=== PATIENT | male | born 1980 | race African-American/Black ===

== ENCOUNTER 2017-04-01 12:58 | Emergency (ER) | payer OTHER ==
[~2017-04-01] VITALS: Ht 182.9 cm; Wt 96.6 kg
[~2017-04-01 12:58] MED LIST: HYDR12.56 PO; LABE200T18 PO; LISI40TA
[2017-04-01] MEDS ORDERED: MINOXIDIL 2.5 MG TAB PO ONE (13:45)
[2017-04-01 14:14] LABS: Basophils # (auto) 0.2 uL; Basophils % (auto) 1.6 % (0.0-2.0); Eosinophils # (auto) 0.3 uL; Eosinophils % (auto) 2.4 % (0.0-7.0); Hematocrit 44.7 % (41.0-53.0); Lymphocytes # (auto) 1.3 uL; Lymphocytes % (auto) 11.9 % (10.0-50.0); Mean Corpuscular Hemoglobin 27.3 pg (28.0-32.0); Mean Corpuscular Hgb Conc. 33.6 g/dL (32.0-36.0); Mean Corpuscular Volume 81.4 fL (80.0-100.0); Mean Platelet Volume 8.4 fL (6.9-10.8); Monocytes # (auto) 0.7 uL; Monocytes % (auto) 6.8 % (0.0-12.0); Neutrophils # (auto) 8.1 uL; Neutrophils % (auto) 77.3 % (37.0-80.0); Nucleated Red Blood Cells % 0.1 %; Platelet Count (auto) 438 10^3/uL (140-450); Red Cell Distribution Width 14.8 % (11.8-14.3); White Blood Cell 10.5 10^3/uL (4.4-10.8)
[2017-04-01 14:27] LABS: Albumin 3.9 g/dL (3.4-5.0); Alkaline Phosphatase 116 U/L (45-117); Anion Gap 10 (5-15); Aspartate Aminotransferase 13 U/L (15-37); BUN/Creatinine Ratio 12.8; Bilirubin, Total 0.5 mg/dL (0.2-1.0); Blood Urea Nitrogen 18 mg/dL (7-18); Calcium 9.1 mg/dL (8.5-10.1); Carbon Dioxide 25 mmol/L (21-32); Chloride 100 mmol/L (98-107); GFR African American 72 mL/min; GFR Non-African American 60 mL/min; Glucose 108 mg/dL (74-106); Potassium 3.5 mmol/L (3.5-5.1); Sodium 135 mmol/L (136-145); Total Protein 8.6 g/dL (6.4-8.2)
[2017-04-01] MEDS ORDERED: LABETALOL HCL 5 MG/ML 4ML SYRINGE IV ONE (14:30)
[2017-04-01] MEDS ORDERED: MORPHINE SULF INJ 2 MG/ML SYRINGE 1ML ONE (14:50)
[2017-04-01] MEDS ORDERED: MORPHINE SULF INJ 2 MG/ML SYRINGE 1ML IV ONE (15:00)
[2017-04-01] MEDS ORDERED: ONDANSETRON HCL 4 MG/2 ML VIAL IV ONE (15:00)
[2017-04-01] MEDS ORDERED: LEVOFLOXACIN 250 MG TAB PO ONE (15:30)
[2017-04-01] MEDS ORDERED: MINOXIDIL 10 MG TAB PO ONE (15:30)
[2017-04-01] MEDS ORDERED: cloNIDine HCL 0.1 MG TAB PO ONE (15:30)
[2017-04-01 16:45] VITALS: BP 127/76
== END 2017-04-01 17:08 | disposition home or self-care (01) ==
LOC: ER 12:58
DX: I12.9 Hypertensive chronic kidney disease with stage 1 through stage 4 chronic kidney disease, or unspecified chronic kidney disease (principal); N18.9 Chronic kidney disease, unspecified; J32.9 Chronic sinusitis, unspecified; R11.2 Nausea with vomiting, unspecified; J45.909 Unspecified asthma, uncomplicated; Z79.899 Other long term (current) drug therapy; E78.5 Hyperlipidemia, unspecified
CPT/HCPCS: 36415; 70450; 80053; 84484; 85025; 93005; 96374; 96375; 99285; J2270; J2405; J3490

== ENCOUNTER 2018-04-02 16:48 | Inpatient (IN) | payer OTHER ==
[~2018-04-02] VITALS: Ht 185.4 cm; Wt 96.6 kg
[~2018-04-02 16:48] MED LIST changes: +CLON0.2T PO; -LISI40TA
[2018-04-02 17:49] LABS: Basophils # (auto) 0.2 uL; Basophils % (auto) 2.7 % (0.0-2.0); Eosinophils # (auto) 0.3 uL; Eosinophils % (auto) 5.2 % (0.0-7.0); Hematocrit 48.8 % (41.0-53.0); Hemoglobin 16.3 g/dL (13.5-17.5); Lymphocytes # (auto) 0.9 uL; Lymphocytes % (auto) 14.4 % (10.0-50.0); Mean Corpuscular Hemoglobin 27.9 pg (28.0-32.0); Mean Corpuscular Hgb Conc. 33.4 g/dL (32.0-36.0); Mean Corpuscular Volume 83.7 fL (80.0-100.0); Monocytes # (auto) 0.5 uL; Monocytes % (auto) 7.1 % (0.0-12.0); Neutrophils # (auto) 4.5 uL; Neutrophils % (auto) 70.6 % (37.0-80.0); Nucleated Red Blood Cells % 0.1 %; Platelet Count (auto) 392 10^3/uL (140-450); Red Blood Cells 5.83 10^6/uL (4.5-5.90); Red Cell Distribution Width 15.6 % (11.8-14.3); White Blood Cell 6.4 10^3/uL (4.4-10.8)
[2018-04-02 18:09] LABS: Alanine Aminotransferase 43 U/L (16-61); Albumin 4.2 g/dL (3.4-5.0); Alkaline Phosphatase 111 U/L (45-117); Anion Gap 7 (5-15); Aspartate Aminotransferase 19 U/L (15-37); BUN/Creatinine Ratio 10.1; Bilirubin, Total 0.5 mg/dL (0.2-1.0); Blood Urea Nitrogen 14 mg/dL (7-18); Calcium 8.8 mg/dL (8.5-10.1); Carbon Dioxide 27 mmol/L (21-32); Chloride 104 mmol/L (98-107); GFR African American 74 mL/min; GFR Non-African American 61 mL/min; Glucose 88 mg/dL (74-106); Magnesium 2.6 mg/dL (1.6-2.6); Potassium 3.6 mmol/L (3.5-5.1); Sodium 138 mmol/L (136-145); Total Protein 8.8 g/dL (6.4-8.2)
[2018-04-02] MEDS ORDERED: NITROGLYCERIN 0.4 MG SL TAB SL ONE (20:45)
[2018-04-02] MEDS ORDERED: ASPirin-EC 325mg tab PO ONE (20:45)
[2018-04-02] MEDS ORDERED: MORPHINE SULFATE 4 MG/ML SYR/VIAL IV ONE (20:45)
[2018-04-02] MEDS ORDERED: LABETALOL HCL 5 MG/ML ML 20ML VIAL IV ONE (20:45)
[2018-04-03] VITALS (7 sets, daily range): BP systolic 127–168; BP diastolic 68–104
[2018-04-03] MEDS ORDERED: NITROGLYCERIN 0.4 MG SL TAB SL PRN (00:45)
[2018-04-03] MEDS ORDERED: ACETAMINOPHEN 325 MG TAB PO PRN (00:45)
[2018-04-03] MEDS ORDERED: TEMAZEPAM 15 MG CAP PO PRN (00:45)
[2018-04-03] MEDS ORDERED: LABETALOL HCL 5 MG/ML ML 20ML VIAL IV ONE (02:45)
[2018-04-03] MEDS ORDERED: cloNIDine HCL 0.1 MG TAB PO ONE (06:00)
[2018-04-03] MEDS: MORPHINE SULF INJ 2 MG/ML SYRINGE 1ML IV PRN ×2 (09:20→14:29)
[2018-04-03] MEDS: ASPirin 81 mg TAB PO SCH (10:05)
[2018-04-03] MEDS: LABETALOL HCL 200 MG TAB PO SCH ×2 (10:06→21:33)
[2018-04-03] MEDS: HCTZ 25 MG TAB PO SCH (10:06)
[2018-04-03] MEDS: FAMOTIDINE 20 MG TAB PO SCH ×2 (10:06→21:33)
[2018-04-03] MEDS: CLOPIDOGREL BISULFATE 75 MG TAB PO SCH (10:07)
[2018-04-03] MEDS: MORPHINE SULFATE 4 MG/ML SYR/VIAL IV PRN (18:22)
[2018-04-03] MEDS: ATORVASTATIN 20 MG TAB PO SCH (21:32)
[2018-04-04] MEDS: ONDANSETRON HCL 4 MG/2 ML VIAL IV PRN ×2 (00:40→15:04)
[2018-04-04 05:00] VITALS: BP 127/77
[2018-04-04 05:47] LABS: Basophils # (auto) 0.1 uL; Basophils % (auto) 1.1 % (0.0-2.0); Eosinophils # (auto) 0.3 uL; Eosinophils % (auto) 5.8 % (0.0-7.0); Hematocrit 43.6 % (41.0-53.0); Hemoglobin 14.3 g/dL (13.5-17.5); Lymphocytes # (auto) 1.5 uL; Lymphocytes % (auto) 25.4 % (10.0-50.0); Mean Corpuscular Hemoglobin 27.3 pg (28.0-32.0); Mean Corpuscular Hgb Conc. 32.9 g/dL (32.0-36.0); Monocytes # (auto) 0.6 uL; Monocytes % (auto) 10.7 % (0.0-12.0); Neutrophils # (auto) 3.4 uL; Nucleated Red Blood Cells % 0.3 %; Platelet Count (auto) 358 10^3/uL (140-450); Red Blood Cells 5.25 10^6/uL (4.5-5.90); Red Cell Distribution Width 15.2 % (11.8-14.3)
[2018-04-04 06:11] LABS: Albumin 3.4 g/dL (3.4-5.0); BUN/Creatinine Ratio 10.5; Bilirubin, Total 0.5 mg/dL (0.2-1.0); Calcium 8.7 mg/dL (8.5-10.1); Potassium 3.5 mmol/L (3.5-5.1); Total Protein 7.2 g/dL (6.4-8.2)
[2018-04-04 08:44] VITALS: BP 133/80
[2018-04-04] MEDS: FAMOTIDINE 20 MG TAB PO SCH ×2 (10:38→21:22)
[2018-04-04] MEDS: CLOPIDOGREL BISULFATE 75 MG TAB PO SCH (10:38)
[2018-04-04] MEDS: ASPirin 81 mg TAB PO SCH (10:38)
[2018-04-04] MEDS: HCTZ 25 MG TAB PO SCH (10:39)
[2018-04-04] MEDS: LABETALOL HCL 200 MG TAB PO SCH ×2 (10:40→21:22)
[2018-04-04] MEDS ORDERED: ERGOCALCIFEROL 50,000 UNIT(1.25MG) CAP PO SCH (11:30)
[2018-04-04 12:24] VITALS: BP 139/80
[2018-04-04 16:55] VITALS: BP 144/96
[2018-04-04] MEDS: MORPHINE SULFATE 4 MG/ML SYR/VIAL IV PRN (17:24)
[2018-04-04 20:00] VITALS: BP 155/105
[2018-04-04] MEDS: ATORVASTATIN 20 MG TAB PO SCH (21:20)
[2018-04-04 22:01] VITALS: BP 155/105
[2018-04-04] MEDS ORDERED: MIN25T PO (23:16)
[2018-04-05] VITALS (7 sets, daily range): BP systolic 141–161; BP diastolic 76–110
[2018-04-05] MEDS: HYDROcodone-ACET 5/325MG TAB PO PRN (03:42)
[2018-04-05] MEDS: FAMOTIDINE 20 MG TAB PO SCH ×2 (09:53→22:14)
[2018-04-05] MEDS: HCTZ 25 MG TAB PO SCH (09:54)
[2018-04-05] MEDS: CLOPIDOGREL BISULFATE 75 MG TAB PO SCH (09:54)
[2018-04-05] MEDS: ASPirin 81 mg TAB PO SCH (09:54)
[2018-04-05] MEDS: LABETALOL HCL 200 MG TAB PO SCH ×2 (09:55→22:13)
[2018-04-05] MEDS ORDERED: LOSARTAN POTASSIUM 25 MG TAB PO ONE (11:15)
[2018-04-05] MEDS ORDERED: MINOXIDIL 10 MG TAB PO ONE (11:30)
[2018-04-05] MEDS: ATORVASTATIN 20 MG TAB PO SCH (22:13)
[2018-04-06] VITALS (8 sets, daily range): BP systolic 123–163; BP diastolic 77–117
[2018-04-06] MEDS: HYDROcodone-ACET 5/325MG TAB PO PRN ×2 (00:02→09:02)
[2018-04-06] MEDS: ONDANSETRON HCL 4 MG/2 ML VIAL IV PRN (06:30)
[2018-04-06] MEDS ORDERED: cloNIDine HCL 0.1 MG TAB PO ONE ×2 (06:30→08:45)
[2018-04-06 07:09] LABS: BUN/Creatinine Ratio 11.4; Calcium 8.7 mg/dL (8.5-10.1); Potassium 3.3 mmol/L (3.5-5.1)
[2018-04-06] MEDS ORDERED: ADENOSINE 81 MG in GIVE UN-DILUTED 0 ML IV STA (08:19)
[2018-04-06] MEDS ORDERED: cloNIDine HCL 0.1 MG TAB PO PRN (08:45)
[2018-04-06] MEDS: CLOPIDOGREL BISULFATE 75 MG TAB PO SCH (09:01)
[2018-04-06] MEDS: FAMOTIDINE 20 MG TAB PO SCH ×2 (09:01→21:48)
[2018-04-06] MEDS: ASPirin 81 mg TAB PO SCH (09:02)
[2018-04-06] MEDS: MINOXIDIL 10 MG TAB PO SCH (09:02)
[2018-04-06] MEDS: LABETALOL HCL 200 MG TAB PO SCH ×2 (09:03→21:47)
[2018-04-06] MEDS ORDERED: LOSARTAN POTASSIUM 25 MG TAB PO SCH (10:00)
[2018-04-06] MEDS ORDERED: CLOP75TA28 PO (12:46)
[2018-04-06] MEDS ORDERED: NITR0.4S29 SL ×2 (12:46→12:47)
[2018-04-06] MEDS ORDERED: AMLO10TA12 PO (12:46)
[2018-04-06] MEDS ORDERED: amLODIPine BESYLATE 5 MG TAB PO ONE (13:00)
[2018-04-06] MEDS: ATORVASTATIN 20 MG TAB PO SCH (21:49)
[2018-04-07] MEDS: HYDROcodone-ACET 5/325MG TAB PO PRN (03:19)
[2018-04-07 05:00] VITALS: BP 152/93
[2018-04-07 09:00] VITALS: BP 147/85
[2018-04-07] MEDS ORDERED: amLODIPine BESYLATE 5 MG TAB PO SCH (10:00)
[2018-04-07] MEDS: ASPirin 81 mg TAB PO SCH (10:25)
[2018-04-07] MEDS: MINOXIDIL 10 MG TAB PO SCH (10:28)
[2018-04-07] MEDS: FAMOTIDINE 20 MG TAB PO SCH (10:29)
[2018-04-07] MEDS: LABETALOL HCL 200 MG TAB PO SCH (10:29)
[2018-04-07] MEDS: CLOPIDOGREL BISULFATE 75 MG TAB PO SCH (10:30)
[2018-04-07 12:20] VITALS: BP 141/84
[2018-04-07] MEDS ORDERED: POTASSIUM CHL 20 Meq TABLET PO ONE (13:30)
[2018-04-07 13:36] VITALS: BP 141/84
== END 2018-04-07 16:30 | disposition home or self-care (01) | DRG 199 ==
LOC: ER 16:56 → TELE-EAST 16:57
PROVIDERS: ADMIT Nurse Practitioner; ATTEND Internal Medicine
PROC: 5A09357 Assistance with Respiratory Ventilation, Less than 24 Consecutive Hours, Continuous Positive Airway Pressure (ICD-10-PCS; principal; 2018-04-05)
DX: I13.10 Hypertensive heart and chronic kidney disease without heart failure, with stage 1 through stage 4 chronic kidney disease, or unspecified chronic kidney disease (principal); N18.3 Chronic kidney disease, stage 3 (moderate); E78.5 Hyperlipidemia, unspecified; I25.119 Atherosclerotic heart disease of native coronary artery with unspecified angina pectoris; Z91.011 Allergy to milk products; Z88.8 Allergy status to other drugs, medicaments and biological substances; Z91.018 Allergy to other foods; G43.909 Migraine, unspecified, not intractable, without status migrainosus; G47.30 Sleep apnea, unspecified; J45.909 Unspecified asthma, uncomplicated; Z82.49 Family history of ischemic heart disease and other diseases of the circulatory system; Z83.3 Family history of diabetes mellitus; Z86.73 Personal history of transient ischemic attack (TIA), and cerebral infarction without residual deficits; Z95.5 Presence of coronary angioplasty implant and graft
CPT/HCPCS: 36415; 71045; 78452; 80048; 80053; 83735; 84484; 85025; 93005; 93017; 94660; 96374; 96375; 99291; J0153; J2405

== ENCOUNTER 2018-08-16 15:40 | Emergency (ER) | payer SELFPAY ==
[~2018-08-16] VITALS: Ht 182.9 cm; Wt 96.6 kg
[~2018-08-16 15:40] MED LIST changes: +AMLO10TA12 PO; +CLOP75TA28 PO; -HYDR12.56 PO; +MIN25T PO; +NITR0.4S29 SL
[2018-08-16 15:48] VITALS: BP 181/114
[2018-08-16] MEDS ORDERED: ACETAMINOPHEN 325 MG TAB PO ONE (16:00)
[2018-08-16 16:18] LABS: Basophils # (auto) 0.1 uL; Basophils % (auto) 0.9 % (0.0-2.0); Eosinophils # (auto) 0.2 uL; Eosinophils % (auto) 3.8 % (0.0-7.0); Hematocrit 48.3 % (41.0-53.0); Hemoglobin 16.1 g/dL (13.5-17.5); Lymphocytes # (auto) 0.8 uL; Mean Corpuscular Hemoglobin 27.6 pg (28.0-32.0); Mean Corpuscular Hgb Conc. 33.3 g/dL (32.0-36.0); Mean Corpuscular Volume 82.8 fL (80.0-100.0); Monocytes # (auto) 0.4 uL; Monocytes % (auto) 6.8 % (0.0-12.0); Neutrophils # (auto) 4.8 uL; Neutrophils % (auto) 75.5 % (37.0-80.0); Nucleated Red Blood Cells % 0.1 %; Platelet Count (auto) 338 10^3/uL (140-450); Red Blood Cells 5.83 10^6/uL (4.5-5.90); Red Cell Distribution Width 14.6 % (11.8-14.3); White Blood Cell 6.4 10^3/uL (4.4-10.8)
[2018-08-16 16:23] LABS: Calcium 8.9 mg/dL (8.5-10.1); Magnesium 2.2 mg/dL (1.6-2.6); Potassium 3.6 mmol/L (3.5-5.1)
[2018-08-16 16:29] LABS: BUN/Creatinine Ratio 9.7; Bilirubin, Total 0.5 mg/dL (0.2-1.0); Total Protein 8.4 g/dL (6.4-8.2)
== END 2018-08-16 19:27 | disposition left against medical advice (07) ==
LOC: ER 15:49
DX: R06.02 Shortness of breath (principal); Z53.21 Procedure and treatment not carried out due to patient leaving prior to being seen by health care provider
CPT/HCPCS: 36415; 71046; 80053; 83735; 84484; 85025

== ENCOUNTER 2018-10-28 21:53 | Emergency (ER) | payer OTHER ==
[~2018-10-28] VITALS: Ht 182.9 cm; Wt 96.6 kg
[2018-10-28 22:18] VITALS: BP 200/100
[2018-10-28] MEDS ORDERED: cloNIDine HCL 0.1 MG TAB PO ONE (22:30)
[2018-10-28 22:51] LABS: Basophils # (auto) 0.1 uL; Basophils % (auto) 1.1 % (0.0-2.0); Eosinophils # (auto) 0.4 uL; Hematocrit 45.2 % (41.0-53.0); Hemoglobin 14.8 g/dL (13.5-17.5); Lymphocytes % (auto) 8.1 % (10.0-50.0); Mean Corpuscular Hemoglobin 26.9 pg (28.0-32.0); Mean Corpuscular Hgb Conc. 32.8 g/dL (32.0-36.0); Mean Corpuscular Volume 81.9 fL (80.0-100.0); Monocytes # (auto) 1.1 uL; Monocytes % (auto) 8.3 % (0.0-12.0); Neutrophils # (auto) 10.2 uL; Neutrophils % (auto) 79.5 % (37.0-80.0); Nucleated Red Blood Cells % 0.7 %; Platelet Count (auto) 369 10^3/uL (140-450); Red Blood Cells 5.52 10^6/uL (4.5-5.90); Red Cell Distribution Width 14.2 % (11.8-14.3); White Blood Cell 12.9 10^3/uL (4.4-10.8)
[2018-10-28 23:10] LABS: Potassium 3.6 mmol/L (3.5-5.1)
[2018-10-28 23:13] LABS: Calcium 8.8 mg/dL (8.5-10.1)
[2018-10-29 04:31] LABS: BUN/Creatinine Ratio 8.2; Bilirubin, Total 0.5 mg/dL (0.2-1.0); Total Protein 8.5 g/dL (6.4-8.2)
== END 2018-10-29 06:18 | disposition left against medical advice (07) ==
LOC: ER 21:59
DX: R51 Headache (principal); R10.9 Unspecified abdominal pain; Z53.21 Procedure and treatment not carried out due to patient leaving prior to being seen by health care provider
CPT/HCPCS: 36415; 74176; 80053; 85025